=== PATIENT | male | born 1940 | race Caucasian/White ===

== ENCOUNTER 2019-10-18 23:22 | Inpatient (IN) | payer OTHER ==
[~2019-10-18] VITALS: Ht 172.7 cm; Wt 74.0 kg
[2019-10-18 23:30] VITALS: Ht 172.7 cm; Wt 74.0 kg
[2019-10-19 00:52] LABS: BASOPHIL % 0.4 % (0-2); PLATELET COUNT 168 x10^3mcL (130-400); RED CELL DISTRIBUTION WIDTH 12.9 % (11.5-14.5)
[2019-10-19 01:18] LABS: CARBON DIOXIDE 28.1 mmol/L (21-32); CHLORIDE SERUM 104 mmol/L (98-107); GLUCOSE SERUM 127 mg/dL (74-106); POTASSIUM SERUM 3.7 mmol/L (3.5-5.1); SODIUM SERUM 140 mmol/L (136-145)
[2019-10-19 01:19] LABS: CALCIUM 9.2 mg/dL (8.5-10.1)
[2019-10-19 04:06] LABS: T3 TOTAL 0.97 ng/mL
[2019-10-19 04:43] LABS: FREE T4 0.97 ng/dL (0.76-1.46); FREE THYROXINE INDEX 3.1 ug/dL (1.4-4.5); T4(THYROXINE) 8.7 ug/dL (4.7-13.3)
[2019-10-19 04:45] LABS: CHOLESTEROL/HDL RATIO 2.6
[2019-10-19] MEDS ORDERED: ATORVASTATIN CA10 M1 PO (05:10)
[2019-10-19] MEDS ORDERED: MONTELUKAST SOD10 M1 (05:11)
[2019-10-19] MEDS ORDERED: AMLODIPINE BESYL5 M2 PO (05:11)
[2019-10-19] MEDS ORDERED: XARELTO20 M1 PO (05:12)
[2019-10-19] MEDS ORDERED: NITROGLYCERIN0.4 MG SL (05:12)
[2019-10-19 05:18] LABS: PLATELET COUNT 172 x10^3mcL (130-400); RED CELL DISTRIBUTION WIDTH 12.6 % (11.5-14.5)
[2019-10-19] MEDS ORDERED: IMD60 PO (05:18)
[2019-10-19] MEDS ORDERED: PROSCAR5 MG PO (05:20)
[2019-10-19 05:23] LABS: BASOPHIL % 0 % (0-2)
[2019-10-19 05:24] LABS: microscopic required? NO
[2019-10-19 05:28] LABS: CARBON DIOXIDE 28.8 mmol/L (21-32); CHLORIDE SERUM 107 mmol/L (98-107); GLUCOSE SERUM 162 mg/dL (74-106); POTASSIUM SERUM 3.7 mmol/L (3.5-5.1); SODIUM SERUM 144 mmol/L (136-145)
[2019-10-19 05:29] LABS: CREATININE SERUM 0.9 mg/dL (0.7-1.3); PHOSPHOROUS 1.9 mg/dL (2.5-4.9)
[2019-10-19 05:35] LABS: UA SPECIFIC GRAVITY <=1.005 (1.005-1.035); urine erythrocyte NEGATIVE (NEGATIVE)
[2019-10-19 05:57] LABS: AMPHETAMINE QUAL UR NONE DETECTED (See below)
[2019-10-19 11:10] VITALS: BP 166/86
[2019-10-19 13:15] VITALS: BP 120/68
[2019-10-19 17:15] VITALS: BP 97/61
[2019-10-19 21:34] VITALS: BP 116/47; BP 136/73
[2019-10-20 05:13] VITALS: BP 133/76
[2019-10-20 07:00] LABS: PLATELET COUNT 179 x10^3mcL (130-400); RED CELL DISTRIBUTION WIDTH 12.8 % (11.5-14.5)
[2019-10-20 07:07] LABS: BASOPHIL % 0 % (0-2)
[2019-10-20 08:00] LABS: CALCIUM 9.1 mg/dL (8.5-10.1); CHLORIDE SERUM 106 mmol/L (98-107); CREATININE SERUM 0.8 mg/dL (0.7-1.3); GLUCOSE SERUM 143 mg/dL (74-106); MAGNESIUM 2.2 mg/dL (1.8-2.4); PHOSPHOROUS 3.2 mg/dL (2.5-4.9); POTASSIUM SERUM 3.9 mmol/L (3.5-5.1); SODIUM SERUM 142 mmol/L (136-145)
[2019-10-20] MEDS ORDERED: PRE20 PO (09:01)
[2019-10-20] MEDS ORDERED: MUCINEX600 MG PO (09:01)
[2019-10-20] MEDS ORDERED: LEVAQUIN500 M1 PO (09:01)
[2019-10-20 09:04] VITALS: BP 124/69
== END 2019-10-20 11:30 | disposition home or self-care (01) | DRG 205 ==
LOC: ED 23:22 → DU 10-19 03:01
PROVIDERS: Emergency Medicine; ADMIT Internal Medicine
DX: M94.0 Chondrocostal junction syndrome [Tietze] (principal); N17.0 Acute kidney failure with tubular necrosis; J44.1 Chronic obstructive pulmonary disease with (acute) exacerbation; N40.0 Benign prostatic hyperplasia without lower urinary tract symptoms; I11.9 Hypertensive heart disease without heart failure; I25.10 Atherosclerotic heart disease of native coronary artery without angina pectoris; E78.5 Hyperlipidemia, unspecified; Z79.01 Long term (current) use of anticoagulants; Z95.1 Presence of aortocoronary bypass graft; Z68.25 Body mass index [BMI] 25.0-25.9, adult; Z87.891 Personal history of nicotine dependence
CPT/HCPCS: 83880; 84439; 90658; 90732; 97116-GP; G0378; J0171; J1100; J1200; J1956; J2920; J3010; J7030; J7620